=== PATIENT | female | born 1965 | race Two or more races ===

== ENCOUNTER 2016-06-25 17:06 | Emergency (ER) | payer BC ==
--- NOTE | 2016-07-25 21:25 | ER ---
ADMIT: 06/25/2016 RM/LOC: ER [facility] MR#: [id number] [id number] [place], [place] [id number] SULE[address] MOREIR[address] [place] [address] Emergency Room Report SEX: F AGE: 50 : 1965 DATE: 06/25/2016 HISTORY OF PRESENT ILLNESS: The patient is a 50-year-old female arrived to the emergency room with a couple of friends. She says she was getting ready to go to work. She works at [employer]. When she noticed some bleeding from her nose, she leaned over to put her boots to finish up her preparing for work and continued bleeding. She did get very anxious and her blood pressure skyrocketed. She has had similar symptoms like this before and about a couple months ago she came to the emergency room, was treated and released with instructions to get a change in her shift from a cold area as she was about to develop pneumonia, and she was unable to really handle that change of environmental cold and hot. PAST MEDICAL HISTORY: Includes diabetes type 2 and hypertension. She has had C-sections x3 and hysterectomy. She takes lisinopril for her hypertension. PHYSICAL EXAMINATION: VITAL SIGNS: Her blood pressure at time of arrival to the ER is 163/110, heart rate is 83, respirations 14, temp is 97.4, and O2 sats 92%. GENERAL: Mildly anxious. She has active very minimal bleeding anterior septum. Posterior pharynx is clear. NEURO: Oriented x4. RESPIRATIONS: No distress. LUNGS: Clear. CVS: Regular in rate and rhythm. ABDOMEN: Nontender. SKIN: Good color and turgor. I did use some Afrin spray 1 spray in each naris, which did constrict the capillary vessel. I found a slow bleeder on the left naris and cauterized it with silver nitrate 1 stick. I then applied KY jelly. DIAGNOSTIC DATA: CBC normal. Chemistry normal except for the potassium 3.4, calcium 8.3, and PTT 23.9. CLINICAL IMPRESSION: Epistaxis, acute left anterior and resolved. The patient was encouraged to use Afrin for the next 2 days, but she needs to lubricate her nose. We did the Vaseline or KY jelly. Continue taking her lisinopril for blood pressure therapy, hydration, lots of water and avoid picking nose or blowing forcefully. She is released home. TUCKER Hernandez / Ben Pettit MD / vincentl JOB #: [id number] CC: Ben Pettit MD, Attending Physician iKshor Marrero MD, Family Physician
== END 2016-06-25 18:47 | disposition home or self-care (01) ==
LOC: ER 17:06
DX: Z03.89 Encounter for observation for other suspected diseases and conditions ruled out (principal); I10 Essential (primary) hypertension; E11.9 Type 2 diabetes mellitus without complications; Z90.710 Acquired absence of both cervix and uterus